=== PATIENT | male | born 1985 | race Caucasian/White ===

== ENCOUNTER → 2024-02-08 | Outpatient (CLI) | payer OTHER | LOC: RAD 09:48 | DX: S63.642D Sprain of metacarpophalangeal joint of left thumb, subsequent encounter (principal); X58.XXXD Exposure to other specified factors, subsequent encounter ==

== ENCOUNTER → 2024-05-13 | Outpatient (CLI) | payer MEDICAID | LOC: RAD 09:57 | DX: M51.17 Intervertebral disc disorders with radiculopathy, lumbosacral region (principal); M47.27 Other spondylosis with radiculopathy, lumbosacral region ==